=== PATIENT | female | born 1995 | race Two or more races ===

== ENCOUNTER 2018-03-29 17:39 | Emergency (ER) | payer OTHER ==
[~2018-03-29] VITALS: Ht 165.1 cm; Wt 59.0 kg
== END 2018-03-29 20:56 | disposition home or self-care (01) ==
LOC: ER 17:39
DX: T78.1XXA Other adverse food reactions, not elsewhere classified, initial encounter (principal); R21 Rash and other nonspecific skin eruption

== ENCOUNTER 2019-08-24 08:09 | Emergency (ER) | payer OTHER ==
[~2019-08-24] VITALS: Ht 162.6 cm; Wt 56.7 kg
[2019-08-24] MEDS ORDERED: URIN D.S. TABL1 EACH PO (14:46)
[2019-08-24] MEDS ORDERED: NITROFURANTOIN100 MG PO (14:46)
== END 2019-08-24 15:22 | disposition home or self-care (01) ==
LOC: ER 08:09
DX: N39.0 Urinary tract infection, site not specified (principal); R10.31 Right lower quadrant pain

== ENCOUNTER 2019-11-30 22:38 | Emergency (ER) | payer OTHER ==
[~2019-11-30] VITALS: Ht 162.6 cm; Wt 54.4 kg
[~2019-11-30 22:38] MED LIST: NITROFURANTOIN100 MG PO; URIN D.S. TABL1 EACH PO
[2019-12-01] MEDS ORDERED: MACRODANTIN100 M1 PO (02:28)
[2019-12-01] MEDS ORDERED: PYRIDIUM DS200 MG PO (02:28)
== END 2019-12-01 02:25 ==
LOC: ER 22:38
DX: N39.0 Urinary tract infection, site not specified (principal)